=== PATIENT | female | born 1960 | race Two or more races ===

== ENCOUNTER 2025-07-08 10:00 | Inpatient (IN) | payer OTHER ==
[~2025-07-08] VITALS: Ht 160 cm; Wt 72.6 kg
[2025-07-08] MEDS ORDERED: NORVASC2.5 M1 PO (14:21)
[2025-07-08] MEDS ORDERED: ATORVASTATIN CA10 MG PO (14:22)
[2025-07-08] MEDS ORDERED: AVAPRO300 MG PO (14:22)
[2025-07-14] MEDS ORDERED: METRONIDAZOLE/SODIUM CHLORIDE 500 MG/100 ML PIGGYBACK IV ONE (08:31)
[2025-07-14] MEDS ORDERED: CEFTRIAXONE SODIUM 2,000 MG VIAL ONE (08:31)
[2025-07-14] MEDS ORDERED: SUGAMMADEX SODIUM 200 MG/2 ML VIAL IV ONE ×2 (12:15→13:00)
[2025-07-14] MEDS ORDERED: LIDOCAINE HCL 1% 20 ML VIAL IJ ONE (12:15)
[2025-07-14] MEDS ORDERED: BUPIVACAINE HCL/PF 0.25% 30ML VIAL InF ONE (12:15)
[2025-07-14] MEDS ORDERED: ENALAPRILAT DIHYDRATE 1.25 MG/ML VIAL IV PRN (12:45)
[2025-07-14] MEDS ORDERED: RINGERS SOLUTION,LACTATED 1,000 ML IV SCH (14:45)
[2025-07-14] MEDS ORDERED: ONDANSETRON HCL 2 MG/ML VIAL IV PRN (14:45)
[2025-07-14] MEDS ORDERED: MORPHINE SULFATE 4 MG/ML CARTRIDGE IV PRN (14:45)
[2025-07-14] MEDS ORDERED: OxyCODONE HCL 5 MG TABLET (ROXICODONE) PO PRN (14:45)
[2025-07-14 15:42] LABS: BASO % 0.2 % (0.1-1.2); EOS # 0.08 (0.04-0.54); EOS % 0.5 % (0.7-7.0); LYMPH # 1.41 (1.18-3.74); LYMPH % 9.5 % (19.3-53.1); MEAN PLATELET VOLUME 10.50 fl (9.4-12.4); MONO # 0.71 (0.24-0.82); MONO % 4.8 % (4.7-12.5); NEUT # 12.49 (1.56-6.13); NEUT % 84.5 % (34.0-71.1); RED CELL DISTRIBUTION WIDTH 13.1 % (11.6-14.4)
[2025-07-14] MEDS ORDERED: METOCLOPRAMIDE HCL 5 MG/ML VIAL IV SCH (17:00)
[2025-07-14] MEDS ORDERED: GABAPENTIN 300 MG CAPSULE PO SCH (17:00)
[2025-07-14] MEDS ORDERED: SIMETHICONE 125 MG CAPSULE PO SCH (17:00)
[2025-07-14] MEDS ORDERED: CELECOXIB 200 MG CAPSULE PO SCH (17:00)
[2025-07-14] MEDS ORDERED: HYOSCYAMINE SULFATE 0.125 MG TAB.SUBL SL SCH (17:00)
[2025-07-14] MEDS ORDERED: METOCLOPRAMIDE HCL 5 MG/ML VIAL ONE (17:20)
[2025-07-14 18:53] VITALS: BP 146/63; O2SAT 94
[2025-07-14] MEDS ORDERED: ACETAMINOPHEN 500 MG GEL..CAP PO SCH (20:00)
[2025-07-14] MEDS ORDERED: IRBESARTAN 300 MG TABLET PO SCH (21:00)
[2025-07-14] MEDS ORDERED: FAMOTIDINE/PF 20 MG/2 ML VIAL IV PUSH SCH (21:00)
[2025-07-15 00:52] VITALS: BP 144/71; O2SAT 94
[2025-07-15 06:20] LABS: BASO % 0.3 % (0.1-1.2); EOS # 0.01 (0.04-0.54); EOS % 0.1 % (0.7-7.0); LYMPH # 1.61 (1.18-3.74); LYMPH % 18.6 % (19.3-53.1); MEAN PLATELET VOLUME 10.60 fl (9.4-12.4); MONO # 0.70 (0.24-0.82); MONO % 8.1 % (4.7-12.5); NEUT # 6.27 (1.56-6.13); NEUT % 72.6 % (34.0-71.1); RED CELL DISTRIBUTION WIDTH 12.9 % (11.6-14.4)
[2025-07-15 07:05] LABS: BUN CREA RATIO 18.0 (7.0-25.0); CREATININE SERUM 0.51 mg/dL (0.55-1.02); GFR 121.41; GLUCOSE FASTING 111.0 mg/dL (65-100); OSMOLALITY SERUM 282.0 MOSM/KG (275-295)
[2025-07-15 08:02] VITALS: BP 154/75; O2SAT 96
[2025-07-15] MEDS ORDERED: AMLODIPINE BESYLATE 5 MG TABLET PO SCH (09:00)
[2025-07-15] MEDS ORDERED: LACTULOSE 20 G/30 ML BLIST.PACK PO SCH (09:00)
[2025-07-15] MEDS ORDERED: LACTOBACILLUS ACIDOPHILUS 1 CAP CAP PO SCH (09:00)
[2025-07-15] MEDS ORDERED: SODIUM CHLORIDE 0.45 % 1,000 ML IV SCH (10:45)
[2025-07-15 16:00] VITALS: BP 145/80; O2SAT 97
[2025-07-15] MEDS ORDERED: ATORVASTATIN CALCIUM 10 MG TABLET PO SCH (17:00)
[2025-07-15] MEDS ORDERED: ENOXAPARIN SODIUM 40 MG/0.4 ML SYRINGE SUBCUTANEO SCH (17:00)
[2025-07-16 00:13] VITALS: BP 121/56; O2SAT 96
[2025-07-16 07:02] LABS: BASO % 0.6 % (0.1-1.2); EOS # 0.20 (0.04-0.54); EOS % 3.2 % (0.7-7.0); LYMPH # 1.80 (1.18-3.74); LYMPH % 28.5 % (19.3-53.1); MEAN PLATELET VOLUME 11.20 fl (9.4-12.4); MONO # 0.57 (0.24-0.82); MONO % 9.0 % (4.7-12.5); NEUT # 3.69 (1.56-6.13); NEUT % 58.4 % (34.0-71.1); RED CELL DISTRIBUTION WIDTH 13.1 % (11.6-14.4)
[2025-07-16 07:18] LABS: BUN CREA RATIO 15.0 (7.0-25.0); CREATININE SERUM 0.41 mg/dL (0.55-1.02); GFR 156.18; GLUCOSE FASTING 89.0 mg/dL (65-100); OSMOLALITY SERUM 282.0 MOSM/KG (275-295)
[2025-07-16 08:00] VITALS: BP 149/77; O2SAT 95
[2025-07-16] MEDS ORDERED: ENOXAPARIN SODIUM 40 MG/0.4 ML SYRINGE SUBCUTANEO SCH (09:00)
[2025-07-16] MEDS ORDERED: AMINO ACIDS/PROTEIN HYDROLYS 30 ML BLIST.PACK PO SCH (09:00)
[2025-07-16] MEDS ORDERED: POTASSIUM PHOS,M-BASIC-D-BASIC 3 MM/ML VIAL IV ONE (12:00)
[2025-07-16 18:23] VITALS: BP 125/72; O2SAT 99
[2025-07-17] VITALS: BP 117/73; O2SAT 98
[2025-07-17 08:00] VITALS: BP 117/71; O2SAT 97
[2025-07-17 14:30] VITALS: BP 127/76; O2SAT 96
== END 2025-07-17 20:45 | disposition home or self-care (01) | DRG 330 ==
LOC: SURH 07-14 07:00 → O/R 07-14 09:00 → SURG 07-14 09:00 → SURH 07-14 10:00 → SURG 07-14 14:41
PROVIDERS: Internal Medicine Geriatric Medicine; ADMIT Colon & Rectal Surgery; ATTEND Colon & Rectal Surgery
PROC: 0DBP4ZZ Excision of Rectum, Percutaneous Endoscopic Approach (ICD-10-PCS; 2025-07-14)
PROC: 0TQB4ZZ Repair Bladder, Percutaneous Endoscopic Approach (ICD-10-PCS; 2025-07-14)
PROC: 0UQG4ZZ Repair Vagina, Percutaneous Endoscopic Approach (ICD-10-PCS; 2025-07-14)
PROC: 0KU Muscles, Supplement (ICD-10-PCS; 2025-07-14)
PROC: 0KU Muscles, Supplement (ICD-10-PCS; 2025-07-14)
PROC: 0DTN4ZZ Resection of Sigmoid Colon, Percutaneous Endoscopic Approach (ICD-10-PCS; principal; 2025-07-14 07:00)
PROC: BW2GZZZ Computerized Tomography (CT Scan) of Pelvic Region (ICD-10-PCS; 2025-07-16)
DX: K57.20 Diverticulitis of large intestine with perforation and abscess without bleeding (principal); K92.1 Melena; N82.4 Other female intestinal-genital tract fistulae; K66.0 Peritoneal adhesions (postprocedural) (postinfection); D64.89 Other specified anemias; E83.39 Other disorders of phosphorus metabolism; E78.5 Hyperlipidemia, unspecified; I10 Essential (primary) hypertension